=== PATIENT | male | born 1990 | race African-American/Black ===

== ENCOUNTER 2017-08-06 08:56 | Emergency (ER) | payer MEDICAID ==
[~2017-08-06] VITALS: Ht 190.5 cm; Wt 81.7 kg
[2017-08-06 09:40] LABS: ABSOLUTE BASOPHILS 0.1 thou/uL (0.0-0.2); ABSOLUTE EOSINOPHILS 0.1 thou/uL (0.0-0.7); ABSOLUTE LYMPHOCYTES 2.7 thou/uL (0.8-5.3); ABSOLUTE MONOCYTES 0.6 thou/uL (0.0-1.2); ABSOLUTE NEUTROPHILS 3.3 thou/uL (1.6-8.1); BASOPHILS 0.9 %; EOSINOPHILS 1.4 %; HEMATOCRIT 40.6 % (42.0-52.0); HEMOGLOBIN 13.9 gm/dL (14.0-18.0); MCH 25.5 pg (26.0-34.0); MCHC 34.2 g/dL (28.0-37.0); MCV 74.6 fL (80.0-100.0); MONOCYTES 8.3 %; MPV 8.6 fl. (7.2-11.1); NUCLEATED RBCS 0 /100WBC; PLATELET COUNT* 273 thou/uL (150-400); POLYS 49.4 %; RBC 5.44 mil/uL (4.50-6.00); RDW-CV 14.8 % (10.5-14.5); WBC 6.7 thou/uL (4.0-11.0)
[2017-08-06 09:46] LABS: CALCIUM 8.5 mg/dL (8.5-10.1); CREATININE 1.2 mg/dL (0.6-1.3); POTASSIUM 3.9 mmol/L (3.5-5.1)
[2017-08-06 09:56] LABS: ALBUMIN 3.6 g/dL (3.4-5.0); TOTAL PROTEIN 7.3 g/dL (6.4-8.2)
[2017-08-06 09:58] LABS: SALICYLATE < 2.8 mg/dL (2.8-20.0)
[2017-08-06 09:59] LABS: ACETAMINOPHEN < 2 ug/mL (10-30); ALCOHOL < 10 mg/dL (<10)
[2017-08-06 11:41] LABS: URINE BILIRUBIN NEGATIVE (Negative); URINE BLOOD NEGATIVE (Negative); URINE CLARITY CLEAR; URINE COLOR YELLOW; URINE GLUCOSE-RANDOM NEGATIVE (Negative); URINE KETONES NEGATIVE (Negative); URINE LEUKOCYTES-REFLEX NEGATIVE (Negative); URINE NITRITE-REFLEX NEGATIVE (Negative); URINE PROTEIN NEGATIVE (Negative); URINE SPECIFIC GRAVITY >= 1.030 (1.005-1.030); URINE UROBILINOGEN 0.2 E.U./dl (0.2-1.0)
[2017-08-06 11:52] LABS: AMP/METHAMP POSITIVE (Negative); BARBITURATES Negative (Negative); BENZODIAZEPINES Negative (Negative); COCAINE Negative (Negative); METHADONE Negative (Negative); OPIATES Negative (Negative); PCP Negative (Negative); THC POSITIVE (Negative)
[2017-08-06 12:50] VITALS: BP 106/57
== END 2017-08-06 12:50 | disposition home or self-care (01) ==
LOC: M.ERS 08:56
PROVIDERS: Emergency Medicine Emergency Medical Services
DX: F15.20 Other stimulant dependence, uncomplicated (principal)

== ENCOUNTER 2018-01-19 14:57 | Emergency (ER) | payer MEDICAID ==
[~2018-01-19] VITALS: Ht 188 cm; Wt 76.7 kg
[2018-01-19 15:39] LABS: ABSOLUTE BASOPHILS 0.1 thou/uL (0.0-0.2); ABSOLUTE EOSINOPHILS 0.1 thou/uL (0.0-0.7); ABSOLUTE LYMPHOCYTES 2.6 thou/uL (0.8-5.3); ABSOLUTE MONOCYTES 0.7 thou/uL (0.0-1.2); ABSOLUTE NEUTROPHILS 2.6 thou/uL (1.6-8.1); HEMATOCRIT 41.9 % (42.0-52.0); HEMOGLOBIN 14.4 gm/dL (14.0-18.0); LYMPHOCYTES 42.8 %; MCH 25.6 pg (26.0-34.0); MCHC 34.3 g/dL (28.0-37.0); MCV 74.4 fL (80.0-100.0); MONOCYTES 11.8 %; MPV 8.3 fl. (7.2-11.1); NUCLEATED RBCS 0 /100WBC; PLATELET COUNT* 332 thou/uL (150-400); POLYS 43.4 %; RBC 5.63 mil/uL (4.50-6.00); RDW-CV 14.8 % (10.5-14.5); WBC 6.1 thou/uL (4.0-11.0)
[2018-01-19 15:53] LABS: ALCOHOL 136 mg/dL (<10); SALICYLATE < 2.8 mg/dL (2.8-20.0)
[2018-01-19 15:54] LABS: ACETAMINOPHEN < 2 ug/mL (10-30)
[2018-01-19 15:56] LABS: CALCIUM 9.1 mg/dL (8.5-10.1); CREATININE 1.1 mg/dL (0.6-1.3); POTASSIUM 3.7 mmol/L (3.5-5.1)
[2018-01-19 16:00] LABS: ALBUMIN 4.1 g/dL (3.4-5.0); TOTAL BILIRUBIN 1.3 mg/dL (<0.1-1.0); TOTAL PROTEIN 7.8 g/dL (6.4-8.2)
[2018-01-19 18:35] VITALS: BP 114/61
== END 2018-01-19 18:36 | disposition home or self-care (01) ==
LOC: M.ERS 14:57
PROVIDERS: Family Medicine
DX: F10.129 Alcohol abuse with intoxication, unspecified (principal); Y90.6 Blood alcohol level of 120-199 mg/100 ml; F17.210 Nicotine dependence, cigarettes, uncomplicated